=== PATIENT | male | born 1965 | race Caucasian/White ===

== ENCOUNTER 2024-09-11 20:13 | Emergency (ER) | payer OTHER, SELFPAY ==
[2024-09-11 20:14] VITALS: BP 187/87; PULSE 59; RESP 16; O2SAT 98; BMI 28.8
--- OUTSIDE RECORDS SUMMARY | 2024-09-11 20:19 | XMS_ITS | Encounter Summary ---
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); Tobacco use disorder; Family history of ischemic heart disease Social History Tobacco Use Types Packs/Day Years Used Date Smoking Tobacco: Never Assessed Sex and Gender Information Value Date Recorded Sex Assigned at Not on file 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
--- OUTSIDE RECORDS SUMMARY | 2024-09-11 20:19 | XMS_ITS | Encounter Summary ---
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
--- OUTSIDE RECORDS SUMMARY | 2024-09-11 20:19 | XMS_ITS | Encounter Summary ---
Author Organization [facility] Address [address] [place] [address] Care Team Providers Care Dedicated Truck Driver Name Role Phone Unavailable Primary Care Provider Unavailabl e Encounter Details Date Type Department Care Team (Late st Contact Info) Description 05/05/1999 Outpatient Historical [facility] Medicine[address] [phone] Sanya House MD [address] [place] [address] Neoplasm of unspecified nature, site unspecified (Primary Dx); Attention to dressings and sutures; Actinic keratosis Social History Tobacco Use Types Packs/Day Years Used Date Smoking Tobacco: Never Assessed Sex and Gender Information Value Date Recorded Sex Assigned at Not on file 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
--- OUTSIDE RECORDS SUMMARY | 2024-09-11 20:19 | XMS_ITS | Encounter Summary ---
Author Organization [facility] Address [address] [place] [address] Care Team Providers Care Patient Assessment Coordinator Name Role Phone Unavailable Primary Care Provider Unavailabl e Encounter Details Date Type Department Care Team (Late st Contact Info) Description 06/05/1999 Outpatient Historical [facility] [phone] Sanya House MD [address] [place] [address] Attention to dressings and sutures (Primary Dx); Chest pain, unspecified; Fam hx-cardiovas dis NEC Social History Tobacco Use Types Packs/Day Years Used Date Smoking Tobacco: Never Assessed Sex and Gender Information Value Date Recorded Sex Assigned at Not on file 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
--- OUTSIDE RECORDS SUMMARY | 2024-09-11 20:19 | XMS_ITS | Encounter Summary ---
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
--- OUTSIDE RECORDS SUMMARY | 2024-09-11 20:19 | XMS_ITS | Clinical Summary ---
Author Organization [employer] [facility] Address [address] 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
--- OUTSIDE RECORDS SUMMARY | 2024-09-11 20:19 | XMS_ITS | Encounter Summary ---
Author Organization [employer] Address [address] 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
--- NOTE | 2024-09-11 20:30 | XRR_ITS ---
PROCEDURE INFORMATION: Exam: XR Chest Exam date and time: 09/11/2024 8:33 PM Age: 59 years old Clinical indication: Pain; Chest pressure; Additional info: Chest pain TECHNIQUE: Imaging protocol: Radiologic exam of the chest. Views: 1 view. COMPARISON: No relevant prior studies available. FINDINGS: Lungs: Unremarkable. No consolidation. Pleural spaces: Unremarkable. No pleural effusion. No pneumothorax. Heart/Mediastinum: Unremarkable. No cardiomegaly. Bones/joints: Unremarkable. XR/XR chest 1V portable [id number] IMPRESSION: No acute findings.
--- NOTE | 2024-09-11 20:30 | ECG_ITS ---
[employer] Test Date: 2024-09-11 Pat Name: Luc Bonner Department: Room: Gender: Male Certified Dental Assistant: : 1965 Requested By: Silvia Summers Order Number: [id number] Handy MD: Sid Abreu M.D. Measurements Intervals Lenore Rate: 59 P: 60 VA: 179 QRS: 76 QRSD: 102 T: 17 QT: 388 QTc: 387 Interpretive Statements SINUS BRADYCARDIA No previous ECG available for comparison Electronically Signed On 09-14-2024 09:06:20 CDT by Sid Abreu M.D. [email or web address] [id number]
--- NOTE | 2024-09-11 20:34 | ED_ITS ---
HPI - Chest Pain 2 General: Chief Complaint: Chest Pain Stated Complaint: chest pressure, L arm tingling Time Seen by Provider: 09/11/24 20:17 History of Present Illness: Patient is a 59-year-old gentleman with history of DM, HTN on beta-homer, that reports to emergency room with chest pain, throbbing, central, that feels like t/o body radiation. He was sleeping when it first occurred. He does not have shortness of breath, nausea or vomiting, or diaphoresis. His blood pressure at home when this first occurred was 124/70. No other concerns per patient. Denies previous history of coronary artery disease. Non-smoker. Associated symptoms: Deny abdominal pain, dyspnea, fever(s), nausea, palpitations or vomiting Related Data Allergies Allergy/AdvReac Type Severity Reaction Status Date / Time amoxicillin Allergy ALGY-Rash Verified 09/11/24 20:21 Review of Systems 2 General: Reports: 10 or more systems reviewed and unremarkable except in HPI and below Const: Denies: fever(s) or chills Eyes: Denies: change in vision or blurry vision ENMT: Denies: throat pain or mouth pain Card: Denies: chest pain or palpitations Resp: Denies: dyspnea or non-productive cough GI: Denies: abdominal pain, nausea or vomiting : Denies: flank pain or difficulty urinating Musc: Denies: neck pain or back pain Skin/Breast: Denies: rash or pruritus Neuro: Denies: headache(s) or numbness in extremities Psych: Denies: anxiety or depression Endo: Denies: polyuria or polydipsia Grupo/Lymph: Denies: easy bruising or easy bleeding Physical Exam 2 Const: COMMON NORMALS: no acute distress, average body habitus and patient oriented x3 GENERAL APPEARANCE: cooperative HENMT: COMMON NORMALS: normocephalic and atraumatic HEAD & SCALP: n ormocephalic and atraumatic Eye: COMMON NORMALS: Equal, round and reactive pupils present and EOMs intact bilaterally PUPIL: Yes Equal, round and reactive pupils present Neck/C-Spine: COMMON NORMALS: full ROM and no lymphadenopathy Lymph: LYMPHATIC: no lymphadenopathy noted Chest: COMMONS NORMALS: normal inspection of the chest and normal palpation of entire chest wall Resp: COMMON NORMALS: normal respiratory effort and clear to auscultation bilaterally AUSCULTATION: clear to auscultation bilaterally Cardio: COMMON NORMALS: regular rate and regular rhythm RATE: regular rate RHYTHM: regular rhythm GI: COMMON NORMALS: Normal to inspection, nondistended, normoactive bowel sounds present : COMMON NORMALS: Yes no CVA tenderness BLADDER/KIDNEY EXAM: Yes no CVA tenderness Back/Pelvis: COMMON NORMALS: no CVA tenderness and thoracic and lumbar spine normal to inspection Extremity: COMMON NORMALS: normal to inspection and full ROM Neuro: COMMON NORMALS: patient oriented x3 Psych: COMMON NORMALS: mental status grossly normal Skin: COMMON NORMALS: no rashes or lesions noted and no wounds GENERAL SKIN EXAM: no rashes or lesions noted Course 2 Vital Signs: Vital signs: Vital Signs Pulse Rate 62 09/11/24 23:02 Respiratory Rate 16 09/11/24 23:02 Blood Pressure 147/85 09/11/24 23:02 Pulse Oximetry 97 09/11/24 23:02 Oxygen Delivery Me thod Room Air 09/11/24 22:01 MDM - Chest Pain Medical Decision Making Patient is a 59-year-old gentleman with chest pain is a throbbing pain in the central area of his chest that spread throughout his body. 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 He was able to go back to sleep. Blood pressure was good at the time he was awoken with pain. He then had the pain recur. He decided to come to the ED for further evaluation. He has multiple risk factors of coronary artery disease, however today there are no acute factors of elevation in troponin or NSTEMI. He does not give a history of acute coronary syndrome. Patient did not improve after GI cocktail. On x-ray, he appeared to have cephalization, mild amount, on my view. He did have mild cardiomegaly. Given these findings even note was read as no acute findings, I did give Lasix x 1, just prior to discharge. Patient will follow-up with his primary care physician for further evaluation and any outpatient testing as we discussed stress testing as well. He will then give his primary care physician feedback regarding the Lasix in the ED. His potassium was 4.5, and therefore did not supplement his potassium. He may need a low-dose diuretic on a daily basis such as hydrochlorothiazide. Additional workup can be addressed by PCP. I have also given patient low-salt, DASH diet to follow. All of his questions were answered to his satisfaction. Lab Data 09/11/24 20:26 09/11/24 20: Radiology Impressions Chest X-Ray 09/11/24 20: IMPRESSION: No acute findings. Laboratory Results WBC 6.58 10^3/uL (3.29-11.43) 09/11/24 20: RBC 4.40 10^6/uL (3.85-5.65) 09/11/24 20: Hgb 13.80 g/dL (11.27-16.99) 09/11/24 20: Hct 40.9 % (37-53) 09/11/24 20: MCV 93.0 fl (82-101) 09/11/24 20: MCH 31.4 pg (27-33) 09/11/24 20: MCHC 33.7 g/dL (30-55) 09/11/24 20: RDW 11.5 % (12.1-15.1) L 09/11/24 20: Plt Count 190 10^3/cmm (157-399) 09/11/24 20: MPV 9.6 fL (7.4-10.4) 09/11/24 20: Neut % (Auto) 41.5 % 09/11/24 20: Lymph % (Auto) 41.0 % 09/11/24: [place] % (Auto) 13.4 % 09/11/24 20: Eos % (Auto) 3.2 % 09/11/24: Baso % (Auto) 0.6 % 09/11/24 20: Neut # (Auto) 2.73 10^3/uL (1.8-7.7) 09/11/24 20: Lymph # (Auto) 2.7 10^3/uL (0.8-4.8) 09/11/24 20: [place] # (Auto) 0.9 10^3/uL (0.2-0.9) 09/11/24 20: Eos # (Auto) 0.2 10^3/uL (0.0-0.8) 09/11/24: Baso # (Auto) 0.0 10^3/uL (0.0-0.1) 09/11/24 20: Nucleated RBC % (auto) 0 % 09/11/24 20: Nucleated RBCs # 0.0 /100WBC 09/11/24 20:26 Sodium 139 mmol/L (136-145) 09/11/24 20: Potassium 4.5 mmol/L (3.5-5.1) 09/11/24 20: Chloride 102 mmol/L (98-107) 09/11/24 20: Carbon Dioxide 27 mmol/L (22-29) 09/11/24 20: Anion Gap 14.5 (5-19) 09/11/24 20: BUN 19 mg/dL (6-20) 09/11/24 20: Creatinine 0.8 mg/dL (0.7-1.2) 09/11/24 20: GFR Calculation 98.9 mL/min (90-130) 09/11/24 20: Glucose 137 mg/dL (65-115) H 09/11/24 20: Calculated Osmolality 292 mOsm/kg (285-295) 09/11/24 20: Calcium 9.5 mg/dL (8.5-10.5) 09/11/24: Total Bilirubin 0.4 mg/dL (0.15-1.2) 09/11/24 20: AST 29 U/L (0-40) 09/11/24 20: ALT 42 U/L (0-41) H 09/11/24 20:26 Alkaline Phosphatase 89 U/L (40-130) 09/11/24 20:26 Troponin T Baseline 8 ng/L (0-15) 09/11/24 20: Troponin T 120 Minute 7.47 ng/L (0-15) 09/11/24 22:10 Delta Troponin T -0.53 ABS# (0-10) L 09/11/24 22:10 NT-Pro-B Natriuret Pep 238 pg/mL (0-125) H 09/11/24 20:26 Total Protein 7.3 g/dL (6.6-8.7) 09/11/24 20: Albumin 4.1 g/dL (3.5-5.2) 09/11/24 20:26 Globulin 3.2 g/dL (1.3-4.6) 09/11/24 20:26 All radiology interpretation(s) finalized by discharge ED provider radiology interpretation(s): Cephalization noted. Other Data nsr, no st elevation Discharge Plan Discharge Patient Disposition: Home Clinical Impression: Atypical chest pain Condition: Stable Discharge Orders: Discharge ED (Routine); Ordered 09/11/24 Ordered By: Silvia Summers Referrals: Domenico Sloan MD [Primary Care Provider, [facility]] Discharge Diet: Low Salt Discharge Activity: Limit activity as instructed Patient Instructions: DASH Eating Plan (ED), Noncardiac Chest Pain (ED), Patient Portal & Esdras Instructions Activity Restrictions/Additional Instructions: Return to ED for chest pain Call your doctor tomorrow for follow-up Continue your baby aspirin daily Follow a low-salt diet. DASH diet information has been given to you. Stand Alone Forms: Work/School Release Print Language: Occitan Coding Level of Care Code ED Apartment Rental Clerk for Anshul Medrano
[2024-09-11] MEDS: aspirin 81 mg Chew Tablet 243 MG PO (20:39)
[2024-09-11 20:50] LABS: Basophils % 0.6 %; Eosinophils # 0.2 10^3/uL (0.0-0.8); Eosinophils % 3.2 %; Hematocrit 40.9 % (37-53); Lymphocytes # 2.7 10^3/uL (0.8-4.8); Mean Corpuscular HGB Conc 33.7 g/dL (30-55); Mean Corpuscular Hemoglobin 31.4 pg (27-33); Mean Platelet Volume 9.6 fL (7.4-10.4); Monocytes # 0.9 10^3/uL (0.2-0.9); Monocytes % 13.4 %; Neutrophils # 2.73 10^3/uL (1.8-7.7); Neutrophils % 41.5 %; Nucleated Red Blood Cells % 0 %; Platelet Count 190 10^3/cmm (157-399); Red Cell Distribution Width 11.5 % (12.1-15.1); White Blood Count 6.58 10^3/uL (3.29-11.43)
[2024-09-11 20:54] LABS: Troponin(5th) Baseline 8 ng/L (0-15)
[2024-09-11 21:00] VITALS: BP 125/74; PULSE 60; RESP 14; O2SAT 97
[2024-09-11 21:01] LABS: Alanine Aminotransferase 42 U/L (0-41); Albumin Level 4.1 g/dL (3.5-5.2); Alkaline Phosphatase 89 U/L (40-130); Anion Gap 14.5 (5-19); Aspartate Amino Transferase 29 U/L (0-40); Blood Urea Nitrogen 19 mg/dL (6-20); Calcium 9.5 mg/dL (8.5-10.5); Carbon Dioxide 27 mmol/L (22-29); Chloride 102 mmol/L (98-107); Globulin 3.2 g/dL (1.3-4.6); Glomerular Filtration Rate 98.9 mL/min (90-130); Glucose 137 mg/dL (65-115); NT Pro B Type Natriuretic Pept 238 pg/mL (0-125); Osmolality Calculated 292 mOsm/kg (285-295); Potassium 4.5 mmol/L (3.5-5.1); Sodium 139 mmol/L (136-145); Total Bilirubin 0.4 mg/dL (0.15-1.2); Total Protein 7.3 g/dL (6.6-8.7)
[2024-09-11 22:01] VITALS: BP 155/81; PULSE 56; RESP 16; O2SAT 97
[2024-09-11] MEDS: lidocaine 2% viscous 15 ML, aluminum-mag hydrox-simethicon 30 ML, sucralfate oral liq 1 GM PO (22:05)
[2024-09-11 22:31] LABS: Troponin 5 2HR 7.47 ng/L (0-15)
[2024-09-11 22:34] LABS: Troponin 5 2HR Delta -0.53 ABS# (0-10)
[2024-09-11] MEDS: FUROsemide 10 mg/mL SDV 4mL 40 MG IVP (22:54)
[2024-09-11 23:02] VITALS: BP 147/85; PULSE 62; RESP 16; O2SAT 97
== END 2024-09-11 23:02 | disposition home or self-care (01) ==
PROVIDERS: Emergency Provider Physician Assistant; PCP Family Medicine
DX: R07.89 Other chest pain (principal)
CPT/HCPCS: 36415; 71045; 80053; 83880; 84484; 85025; 93005; 96374; 99285; J1938; J9999

== ENCOUNTER 2024-09-29 11:40 | Outpatient (CLI) | payer OTHER, SELFPAY ==
[2024-09-29 12:07] VITALS: BMI 29.6
--- NOTE | 2024-09-29 12:11 | ECG_ITS ---
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 Interpretive Statements EXERCISE STRESS TEST EXERCISE DATA: The patient was exercised by Hamzah protocol. Baseline heart rate was 99 beats per minute. Baseline blood pressure was 165/95 millimeters of mercury. Maximal predicted heart rate was 161 beats per minute. Maximum heart rate achieved was 178 which was 110% of the maximum predicted heart rate. Maximum blood pressure was 221/63 millimeters of mercury. Total exercise time was 8 minutes and 16 seconds. Maximum METs achieved was 10.2. The reason for ending the test was completion of protocol. The patient complained of shortness of breath and chest pressure during the stress test, which then resolved at the end of the test. ELECTROCARDIOGRAM: BASELINE: Showed sinus rhythm, normal axis, no significant ST-T changes at the baseline noted. [] EXERCISE: At the peak exercise level, [] No significant ST-T changes suggestive of ischemia noted. [] RECOVERY: During the recovery period, heart rate dropped appropriately. No significant ST-T changes in the recovery suggestive of ischemia noted. [] CONCLUSION: 1. Exercise capacity is good 2. Heart rate response was appropriate 3. Blood pressure response was hypertensive 4. Symptoms not suggestive of ischemia. 5. Stress test is not indicative of ischemia Electronically Signed On 10-09-2024 12:01:53 CDT by Sid Abreu M.D. [email or web address] [id number]
[2024-09-29 12:57] VITALS: BP 154/88; PULSE 99
== END 2024-09-29 11:41 | disposition home or self-care (01) ==
LOC: CDL 11:42
PROVIDERS: PCP Family Medicine; Visit Provider Family Medicine
DX: R07.9 Chest pain, unspecified (principal); R93.1 Abnormal findings on diagnostic imaging of heart and coronary circulation
CPT/HCPCS: 93017

== ENCOUNTER → 2024-12-27 07:12 | Outpatient (BNVA) | payer OTHER, SELFPAY | PROVIDERS: PCP Family Medicine; Visit Provider Podiatrist Foot & Ankle Surgery | DX: M79.671 Pain in right foot (principal); M72.2 Plantar fascial fibromatosis; Q66.71 Congenital pes cavus, right foot; Q66.72 Congenital pes cavus, left foot | CPT/HCPCS: 73630 ==

== ENCOUNTER 2025-03-05 07:25 | Outpatient (RCR) | payer OTHER, SELFPAY | END 2025-03-14 23:59 | disposition home or self-care (01) | LOC: SPT 07:25 | PROVIDERS: Visit Provider Podiatrist Foot & Ankle Surgery | DX: M72.2 Plantar fascial fibromatosis (principal) | CPT/HCPCS: 97033; 97035; 97161; 97530 ==